=== PATIENT | male | born 1985 | race Caucasian/White ===

== ENCOUNTER 2021-02-07 22:12 | Emergency (ER) | payer MEDICAID, OTHER ==
[2021-02-07] MEDS ORDERED: Famotidine 20 MG Tab PO ONE (22:32)
--- NOTE | 2021-02-07 22:34 | EDM.PDOC ---
ED HPI GENERAL MEDICAL PROBLEM - General Chief Complaint: General Stated Complaint: COUGH WITH BLOOD Time Seen by Provider: 02/07/21 22:14 - History of Present Illness INITIAL COMMENTS - FREE TEXT/NARRATIVE: History of present illness: [] 35-year-old male who enjoys good health says he was smoking marijuana any coughed and he coughed so hard he vomited. He spit up blood without vomitus her sputum. He spit up blood not sure if it came from his stomach or his lungs. He had some bleeding around his mouth afterwards. He is not lightheaded or dizzy. He has no fever and chills. He has no recent illness. He does have frequent indigestion used to take Pepcid. He has frequent regurgitation at night. He does smoke. He has no history of thromboembolic disease. He does not have any recent immobilization surgery or cast. Review of systems: As per history of present illness and below otherwise all systems reviewed and negative. Past medical history: As per history of present illness and as reviewed below otherwise noncontributory. Surgical history: As per history of present illness and as reviewed below otherwise noncontributory. Social history: No reported history of drug or alcohol abuse. Family history: As per history of present illness and as reviewed below otherwise noncontributory. Physical exam: Constitutional - well developed, well-nourished and in no acute distress HEENT - normocephalic, no evidence of trauma - external nose and mouth normal - no mass in neck and no JVD - mucosae moist EYES - full EOM, PERRL, no icterus - no evidence of inflammation, injection, or drainage Respiratory - no respiratory distress, equal bilateral expansion, lungs clear to auscultation and no abnormal lung sounds Cardiovascular - Regular Rhythm with S1 and S2 appreciated and no murmur, gallop or rub. GI - abdomen soft without distension or organomegaly - normal bowel sounds - no guard or rebound Musculoskeletal no gross deformity of long bones or joints - no tenderness, swelling or edema Neurologic - Alert and oriented times four - CN II-XII grossly intact - motor sensory and coordination symmetrically normal Psychiatric - appropriate mood and affect with normal thought content Hematologic - No petechiae or purpura - mucosa appropriate color and sclera not pale - normal nail bed color and refill Integument - no rash or evidence of trauma - normal turgor Diagnostics: [] Therapeutics: [] Impression: [] Plan: [] Definitive disposition and diagnosis as appropriate pending reevaluation and review of above. - Related Data Allergies Allergy/AdvReac Type Severity Reaction Status Date / Time No Known Allergies Allergy Verified 02/07/21 22:20 Home Meds: Home Meds . [No Known Home Meds] 02/07/21 [History] Past Medical History Genitourinary History: Reports: Renal Calculus Other Genitourinary History: stents placed Social & Family History - Recreational Drug Use Recreational Drug Use: Yes Recreational Drug Type: Reports: Marijuana/Hashish ED ROS GENERAL - Review of Systems Review Of Systems: Comprehensive ROS is negative, except as noted in HPI. ED EXAM, GENERAL - Physical Exam Exam: See Below Free Text/Narrative:: My physical exam is in the HPI Course - Vital Signs Last Recorded V/S: Last Vital Signs Temp 36.0 C L 02/07/21 22:21 Pulse 77 02/07/21 22:21 Resp 17 02/07/21 22:21 BP 139/80 02/07/21 22:21 Pulse Ox 94 L 02/07/21 22:21 - Orders/Labs/Meds Orders: Active Orders 24 hr Category Date Time Status Chest 2V [CR] Stat Exams 02/07/21 22:32 Ordered Meds: Medications Discontinued Medications Generic Name Dose Route Start Last Admin Trade Name Prakashq PRN Reason Stop Dose Admin Famotidine 20 mg 02/07/21 22:32 02/07/21 22:43 Famotidine 20 Mg Tab PO 02/07/21 22:33 20 mg ONETIME ONE Administration - Re-Assessments/Exams Free Text/Narrative Re-Assessment/Exam: 02/07/21 22:45 Chest x-ray is unremarkable Departure - Departure Time of Disposition: 22:46 Disposition: Home, Self-Care 01 Condition: Good Clinical Impression: Gastroesophageal reflux, Hemoptysis - Discharge Information Instructions: Hemoptysis, [id number], Gastroesophageal Reflux Disease, Adult, [id number] Forms: ED Department Discharge Additional Instructions: Restart either famotidine or one of the omeprazole pantoprazole or similar medicines to reduce stomach acid. Elevate head of your bed. Don't eat close to bedtime. Continue Tums as needed for burning epigastric pain or esophageal pain. Follow-up with primary care to make sure this episode resolves and doesn't warrant further work-up including upper GI endoscopy. [facility] [address] [place] [address] [facility] [address] [place] [address] The following information is given to patients seen in the emergency department who are being discharged to home. This information is to outline your options for follow-up care. We provide all patients seen in our emergency department with a follow-up referral. The need for follow-up, as well as the timing and circumstances, are variable depending upon the specifics of your emergency department visit. If you don't have a primary care physician on staff, we will provide you with a referral. We always advise you to contact your personal physician following an emergency department visit to inform them of the circumstance of the visit and for follow-up with them and/or the need for any referrals to a consulting specialist. The emergency department will also refer you to a specialist when appropriate. This referral assures that you have the opportunity for follow-up care with a specialist. All of these measure are taken in an effort to provide you with optimal care, which includes your follow-up. Under all circumstances we always encourage you to contact your private physician who remains a resource for coordinating your care. When calling for follow-up care, please make the office aware that this follow-up is from your recent emergency room visit. If for any reason you are refused follow-up, please contact the [facility] Emergency Department at and asked to speak to the emergency department charge nurse. Sepsis Event Note (ED) - Evaluation Sepsis Screening Result: No Definite Risk - Focused Exam Vital Signs: Vital Signs Temp Pulse Resp BP Pulse Ox 02/07/21 22:21 36.0 C L 77 17 139/80 94 L - My Orders Last 24 Hours: My Active Orders 02/07/21 22:32 Chest 2V [CR] Stat - Assessment/Plan Last 24 Hours: My Active Orders 02/07/21 22:32 Chest 2V [CR] Stat
--- NOTE | 2021-02-07 23:14 | CR ---
INDICATION: Hemoptysis TECHNIQUE: Chest radiograph 2 views on 3 films COMPARISON: 05/21/2010 FINDINGS: Mediastinum: The mediastinum is normal in appearance. The heart silhouette is normal in size and morphology. Lung: Both lungs are unremarkable in appearance. No sign of pleural effusion seen. No pneumothorax is identified. Bone and Soft tissue: Unremarkable for age. IMPRESSION: 1. No acute cardiopulmonary disease is seen. Dictated by: Javier Reinoso MD @ 02/07/2021 23:13:17 (Electronically Signed)
== END 2021-02-07 22:53 | disposition home or self-care (01) ==
LOC: MW.ED 22:12
DX: K21.9 Gastro-esophageal reflux disease without esophagitis (principal); R04.2 Hemoptysis
CPT/HCPCS: 71046; 99284; A9270